=== PATIENT | male | born 1960 | race Caucasian/White ===

== ENCOUNTER 2020-02-11 19:38 | Emergency (ER) | payer OTHER ==
[~2020-02-11] VITALS: Ht 175.3 cm; Wt 81.6 kg
[~2020-02-11 19:38] MED LIST: CELEBREX100 MG PO; DESPEC-DM TABL1 EACH PO; FLEXERIL; GAS RELIEF 8080 MG; KETO10TA2 PO; MEDROL4 MG PO; MEDROLPACK PO; OMEPRAZOLE10 MG; ORPH100T PO; TUSSIONEX PENNKI5 ML PO; VOLTAREN100 GM
== END 2020-02-11 22:06 | disposition home or self-care (01) ==
LOC: ER 19:38
DX: R31.29 Other microscopic hematuria (principal); R10.31 Right lower quadrant pain; R10.11 Right upper quadrant pain